=== PATIENT | female | born 1960 | race Caucasian/White ===

== ENCOUNTER 2018-01-22 08:25 | Inpatient (IN) | payer MEDICAID ==
[~2018-01-22] VITALS: Ht 154.9 cm; Wt 80.0 kg
[2018-01-22 09:14] LABS: Basophils # (auto) 0 uL; Basophils % (auto) 0.3 % (0.0-2.0); Eosinophils # (auto) 0 uL; Hematocrit 45.5 % (36.0-46.0); Hemoglobin 15.4 g/dL (12.2-16.2); Lymphocytes % (auto) 7.6 % (10.0-50.0); Mean Corpuscular Hgb Conc. 33.9 g/dL (32.0-36.0); Mean Corpuscular Volume 91.4 fL (80.0-100.0); Monocytes # (auto) 0.7 uL; Monocytes % (auto) 5.1 % (0.0-12.0); Neutrophils # (auto) 11.6 uL; Platelet Count (auto) 298 10^3/uL (140-450); Red Blood Cells 4.98 10^6/uL (4.0-5.20); Red Cell Distribution Width 13.5 % (11.8-14.3); White Blood Cell 13.3 10^3/uL (4.4-10.8)
[2018-01-22] MEDS ORDERED: SODIUM CHLORIDE 0.9% 1,000 ML IV ONE (09:20)
[2018-01-22 09:21] LABS: BUN/Creatinine Ratio 12.6; Calcium 8.9 mg/dL (8.5-10.1); Potassium 4.1 mmol/L (3.5-5.1)
[2018-01-22 09:24] LABS: Amylase 37 U/L (25-115); Bilirubin, Total 0.6 mg/dL (0.2-1.0); Lipase 188 U/L (73-393); Total Protein 7.8 g/dL (6.4-8.2)
[2018-01-22] MEDS ORDERED: LABETALOL HCL 5 MG/ML ML 20ML VIAL IV ONE (09:30)
[2018-01-22] MEDS ORDERED: ONDANSETRON HCL 4 MG/2 ML VIAL IV ONE (09:30)
[2018-01-22] MEDS ORDERED: MORPHINE SULFATE 4 MG/ML SYR/VIAL IV ONE (09:30)
[2018-01-22 09:43] LABS: Urine Bacteria NONE SEEN /hpf (None Seen); Urine Blood Negative /uL (Negative); Urine Mucus FEW (None Seen); Urine Specific Gravity 1.018 (1.001-1.035); Urine WBC 2 /hpf (0 - 5)
[2018-01-22] MEDS ORDERED: cloNIDine HCL 0.1 MG TAB PO ONE (10:45)
[2018-01-22] MEDS ORDERED: cefTRIAXone 1GM/10ml IVPUSH 10 ML IV ONE (12:00)
[2018-01-22] MEDS ORDERED: DEXTROSE (50%) 50ML SYRG IV PRN (12:45)
[2018-01-22] MEDS ORDERED: cloNIDine HCL 0.1 MG TAB PO PRN (13:00)
[2018-01-22] MEDS ORDERED: ACETAMINOPHEN 325 MG TAB PO PRN (13:00)
[2018-01-22] MEDS ORDERED: HYDROcodone-ACET 5/325MG TAB PO PRN (13:00)
[2018-01-22] MEDS ORDERED: LABETALOL HCL 5 MG/ML ML 20ML VIAL IV PRN (13:00)
[2018-01-22] MEDS: SODIUM CHLORIDE 0.9% 1,000 ML IV SCH ×2 (13:30→21:51)
[2018-01-22] MEDS: metroNIDAZOLE 500MG/100ML 100 ML IV SCH ×2 (14:00→21:51)
[2018-01-22] MEDS ORDERED: [UNRECOGNIZED DRUG - CODE] PO (14:21)
[2018-01-22] MEDS: ACCU-CHEK COMFORT CURVE STRIP VI SCH ×2 (16:39→21:51)
[2018-01-22] MEDS: InsuLIN REG 1unit/0.01ml Soln (100units/ml) SC SCH ×2 (16:39→21:51)
[2018-01-22 17:07] VITALS: BP 117/75
[2018-01-22] MEDS: MORPHINE SULFATE 4 MG/ML SYR/VIAL IV PRN (18:07)
[2018-01-22] MEDS: ONDANSETRON HCL 4 MG/2 ML VIAL IV PRN (18:07)
[2018-01-22] MEDS: ALBUTEROL SULF 2.5 MG/0.5ML(0.5%) NEB SOLN NEB SCH (18:11)
[2018-01-22 20:07] VITALS: BP 117/75
[2018-01-22] MEDS: FAMOTIDINE 20 MG TAB PO SCH (21:51)
[2018-01-22] MEDS: ASCORBIC ACID 500 MG TAB PO SCH (21:51)
[2018-01-22 22:00] VITALS: BP 126/76
[2018-01-23 05:00] VITALS: BP 105/69
[2018-01-23] MEDS: SODIUM CHLORIDE 0.9% 1,000 ML IV SCH ×3 (05:27→17:09)
[2018-01-23 06:15] LABS: Basophils # (auto) 0 uL; Basophils % (auto) 0.3 % (0.0-2.0); Eosinophils # (auto) 0.1 uL; Hematocrit 39.1 % (36.0-46.0); Hemoglobin 13.1 g/dL (12.2-16.2); Lymphocytes # (auto) 1.7 uL; Lymphocytes % (auto) 19.8 % (10.0-50.0); Mean Corpuscular Hemoglobin 31.1 pg (28.0-32.0); Mean Corpuscular Hgb Conc. 33.6 g/dL (32.0-36.0); Mean Corpuscular Volume 92.6 fL (80.0-100.0); Monocytes # (auto) 0.7 uL; Monocytes % (auto) 8.5 % (0.0-12.0); Neutrophils % (auto) 70.4 % (37.0-80.0); Nucleated Red Blood Cells % 0.1 %; Platelet Count (auto) 226 10^3/uL (140-450); Red Blood Cells 4.22 10^6/uL (4.0-5.20); Red Cell Distribution Width 13.5 % (11.8-14.3); White Blood Cell 8.6 10^3/uL (4.4-10.8)
[2018-01-23] MEDS: metroNIDAZOLE 500MG/100ML 100 ML IV SCH ×3 (06:15→21:39)
[2018-01-23] MEDS: InsuLIN REG 1unit/0.01ml Soln (100units/ml) SC SCH ×4 (06:15→21:44)
[2018-01-23] MEDS: ACCU-CHEK COMFORT CURVE STRIP VI SCH ×4 (06:15→21:44)
[2018-01-23] MEDS: MORPHINE SULFATE 4 MG/ML SYR/VIAL IV PRN ×3 (06:16→20:18)
[2018-01-23] MEDS: ONDANSETRON HCL 4 MG/2 ML VIAL IV PRN ×3 (06:16→20:18)
[2018-01-23 06:37] LABS: Potassium 3.9 mmol/L (3.5-5.1)
[2018-01-23 06:52] LABS: Albumin 2.9 g/dL (3.4-5.0); BUN/Creatinine Ratio 15.5; Bilirubin, Total 0.8 mg/dL (0.2-1.0); Calcium 7.6 mg/dL (8.5-10.1); Total Protein 5.9 g/dL (6.4-8.2)
[2018-01-23] MEDS: ALBUTEROL SULF 2.5 MG/0.5ML(0.5%) NEB SOLN NEB SCH ×4 (06:55→19:31)
[2018-01-23 08:00] VITALS: BP 100/61
[2018-01-23 09:38] VITALS: BP 100/61
[2018-01-23] MEDS: FAMOTIDINE 20 MG TAB PO SCH ×2 (09:46→21:40)
[2018-01-23] MEDS: ZINC SULFATE 220mg CAP or TAB PO SCH (09:46)
[2018-01-23] MEDS: MULTIPLE VITAMIN TAB PO SCH (09:46)
[2018-01-23] MEDS: CYANOCOBALAMIN 500 MCG TAB PO SCH (09:46)
[2018-01-23] MEDS: ASCORBIC ACID 500 MG TAB PO SCH ×2 (09:46→21:41)
[2018-01-23] MEDS: cefTRIAXone 1GM/10ml IVPUSH 10 ML IV SCH (09:47)
[2018-01-23 09:59] LABS: INR 0.98 (0.9-1.15); Partial Thromboplastin Time 27.3 sec (23.78-33.04); Prothrombin Time 10.5 sec (9.27-12.13)
[2018-01-23 13:00] VITALS: BP 109/72
[2018-01-23 16:19] VITALS: BP 113/82
[2018-01-23 21:48] VITALS: BP 112/73
[2018-01-24] MEDS: ONDANSETRON HCL 4 MG/2 ML VIAL IV PRN ×3 (00:31→09:48)
[2018-01-24] MEDS: MORPHINE SULFATE 4 MG/ML SYR/VIAL IV PRN ×4 (00:31→21:38)
[2018-01-24] MEDS: SODIUM CHLORIDE 0.9% 1,000 ML IV SCH ×2 (03:27→12:49)
[2018-01-24 04:47] VITALS: BP 106/70
[2018-01-24] MEDS ORDERED: SODIUM CHLORIDE 0.9 % NEB SOLN 3ML NEB ONE (05:36)
[2018-01-24] MEDS: metroNIDAZOLE 500MG/100ML 100 ML IV SCH ×3 (06:00→21:40)
[2018-01-24] MEDS: ALBUTEROL SULF 2.5 MG/0.5ML(0.5%) NEB SOLN NEB SCH ×3 (06:00→18:00)
[2018-01-24] MEDS: ACCU-CHEK COMFORT CURVE STRIP VI SCH ×2 (06:18→11:35)
[2018-01-24] MEDS: InsuLIN REG 1unit/0.01ml Soln (100units/ml) SC SCH ×2 (06:18→11:30)
[2018-01-24 06:26] LABS: Basophils # (auto) 0 uL; Basophils % (auto) 0.5 % (0.0-2.0); Eosinophils # (auto) 0.2 uL; Eosinophils % (auto) 2.7 % (0.0-7.0); Lymphocytes # (auto) 1.6 uL; Lymphocytes % (auto) 20.5 % (10.0-50.0); Mean Corpuscular Hemoglobin 31.8 pg (28.0-32.0); Mean Corpuscular Hgb Conc. 34.3 g/dL (32.0-36.0); Mean Corpuscular Volume 92.7 fL (80.0-100.0); Monocytes # (auto) 0.7 uL; Monocytes % (auto) 8.7 % (0.0-12.0); Neutrophils # (auto) 5.4 uL; Neutrophils % (auto) 67.6 % (37.0-80.0); Nucleated Red Blood Cells % 0.1 %; Platelet Count (auto) 223 10^3/uL (140-450); Red Cell Distribution Width 13.7 % (11.8-14.3)
[2018-01-24 06:57] LABS: Potassium 3.9 mmol/L (3.5-5.1)
[2018-01-24 07:02] LABS: BUN/Creatinine Ratio 9.4; Calcium 7.7 mg/dL (8.5-10.1); Magnesium 1.8 mg/dL (1.6-2.6)
[2018-01-24 09:00] VITALS: BP 115/71
[2018-01-24] MEDS: cefTRIAXone 1GM/10ml IVPUSH 10 ML IV SCH (09:50)
[2018-01-24] MEDS: ZINC SULFATE 220mg CAP or TAB PO SCH (10:00)
[2018-01-24] MEDS: ASCORBIC ACID 500 MG TAB PO SCH ×2 (10:00→21:40)
[2018-01-24] MEDS: CYANOCOBALAMIN 500 MCG TAB PO SCH (10:00)
[2018-01-24] MEDS: MULTIPLE VITAMIN TAB PO SCH (10:00)
[2018-01-24] MEDS: FAMOTIDINE 20 MG TAB PO SCH ×2 (10:00→21:40)
[2018-01-24 13:00] VITALS: BP 123/72
[2018-01-24] MEDS ORDERED: ceFAZolin 1GM/50ML 50 ML IV ONE (15:27)
[2018-01-24] MEDS ORDERED: POVIDONE IODINE 10 % TOPICAL OINT 30GM TOP ONE (16:15)
[2018-01-24] MEDS ORDERED: GLYCOPYRROLATE 0.2 MG/ML 1ML VIAL IV ONE (16:24)
[2018-01-24] MEDS ORDERED: NEOSTIGMINE 1 MG/ML INJ (10mg/10ML VIAL) IV ONE (16:24)
[2018-01-24] MEDS ORDERED: SUCCINYLCHOLINE CHLORIDE 20 MG/ML 10ML VIAL IV ONE (16:25)
[2018-01-24] MEDS ORDERED: MEPERIDINE HCL (50 MG/ML) 1 ML VIAL ONE (16:30)
[2018-01-24] MEDS ORDERED: fentaNYL CITRATE 100 MCG/2 ML VL ONE (16:30)
[2018-01-24] MEDS ORDERED: MIDAZOLAM HCL 1MG/1ML-2 ML VIAL ONE (16:30)
[2018-01-24] MEDS ORDERED: DEXAMETHASONE SOD PHOS 10MG/1ML VIAL INJ ONE (16:52)
[2018-01-24] MEDS ORDERED: PROPOFOL 10 MG/ML 20 ML IV ONE (16:54)
[2018-01-24] MEDS ORDERED: ROCURONIUM 10MG/ML 10ML VIAL IV ONE (17:07)
[2018-01-24] MEDS ORDERED: MORPHINE SULFATE 4 MG/ML SYR/VIAL IV PRN (17:15)
[2018-01-24] MEDS: ONDANSETRON HCL 4 MG/2 ML VIAL IV ONE ×2 (17:15→17:50)
[2018-01-24] MEDS ORDERED: ePHEDrine SULFATE 50 MG/ML AMP IV PRN (17:15)
[2018-01-24] MEDS: KETOROLAC TROMETH 30 MG/ML 1ML VIAL IV ONE ×2 (17:15→17:50)
[2018-01-24] MEDS ORDERED: MIDAZOLAM HCL 1MG/1ML-2 ML VIAL IV PRN (17:15)
[2018-01-24] MEDS ORDERED: LABETALOL HCL 5 MG/ML 4ML SYRINGE IV PRN (17:15)
[2018-01-24] MEDS: HYDROmorphone HCL 2 MG/ML VL IV PRN ×2 (17:50→18:00)
[2018-01-24] MEDS ORDERED: MORPHINE SULFATE 4 MG/ML SYR/VIAL IV ONE (18:00)
[2018-01-24 22:00] VITALS: BP 104/77
[2018-01-25] MEDS: TEMAZEPAM 15 MG CAP PO PRN ×2 (01:29→22:29)
[2018-01-25] MEDS: SODIUM CHLORIDE 0.9% 1,000 ML IV SCH ×2 (01:29→08:30)
[2018-01-25] MEDS: MORPHINE SULFATE 4 MG/ML SYR/VIAL IV PRN ×2 (03:17→08:29)
[2018-01-25 05:00] VITALS: BP 121/78
[2018-01-25] MEDS: ALBUTEROL SULF 2.5 MG/0.5ML(0.5%) NEB SOLN NEB SCH ×4 (06:00→18:35)
[2018-01-25] MEDS: metroNIDAZOLE 500MG/100ML 100 ML IV SCH ×3 (06:02→22:31)
[2018-01-25 07:04] LABS: Basophils # (auto) 0 uL; Basophils % (auto) 0.2 % (0.0-2.0); Eosinophils # (auto) 0 uL; Hematocrit 38.2 % (36.0-46.0); Hemoglobin 13.3 g/dL (12.2-16.2); Lymphocytes # (auto) 0.5 uL; Lymphocytes % (auto) 5.4 % (10.0-50.0); Mean Corpuscular Hemoglobin 32.4 pg (28.0-32.0); Mean Corpuscular Hgb Conc. 34.9 g/dL (32.0-36.0); Mean Corpuscular Volume 92.9 fL (80.0-100.0); Monocytes # (auto) 0.2 uL; Monocytes % (auto) 2.8 % (0.0-12.0); Neutrophils # (auto) 8.2 uL; Neutrophils % (auto) 91.6 % (37.0-80.0); Platelet Count (auto) 244 10^3/uL (140-450); Red Blood Cells 4.11 10^6/uL (4.0-5.20); Red Cell Distribution Width 13.1 % (11.8-14.3)
[2018-01-25 07:20] LABS: Albumin 2.7 g/dL (3.4-5.0); BUN/Creatinine Ratio 21.1; Magnesium 1.9 mg/dL (1.6-2.6); Potassium 4.8 mmol/L (3.5-5.1)
[2018-01-25 07:23] LABS: Bilirubin, Total 0.2 mg/dL (0.2-1.0); Total Protein 6.2 g/dL (6.4-8.2)
[2018-01-25] MEDS: ONDANSETRON HCL 4 MG/2 ML VIAL IV PRN ×2 (08:30→14:23)
[2018-01-25 09:00] VITALS: BP 119/92
[2018-01-25] MEDS: ASCORBIC ACID 500 MG TAB PO SCH ×2 (10:00→22:29)
[2018-01-25] MEDS: ZINC SULFATE 220mg CAP or TAB PO SCH (10:03)
[2018-01-25] MEDS: MULTIPLE VITAMIN TAB PO SCH (10:03)
[2018-01-25] MEDS: CYANOCOBALAMIN 500 MCG TAB PO SCH (10:03)
[2018-01-25] MEDS: FAMOTIDINE 20 MG TAB PO SCH ×2 (10:03→22:29)
[2018-01-25] MEDS: cefTRIAXone 1GM/10ml IVPUSH 10 ML IV SCH (10:08)
[2018-01-25 12:00] VITALS: BP 130/90
[2018-01-25] MEDS ORDERED: LEVO500T21 PO (12:43)
[2018-01-25] MEDS ORDERED: METR500T PO (12:43)
[2018-01-25] MEDS: DOCUSATE SOD 100 MG CAP PO PRN ×2 (14:21→22:29)
[2018-01-25] MEDS: HYDROcodone-ACET 5/325MG TAB PO PRN ×2 (14:22→20:04)
[2018-01-25 17:00] VITALS: BP 128/81
[2018-01-25 21:55] VITALS: BP 111/69
[2018-01-25 23:10] VITALS: BP 111/69
[2018-01-26] MEDS: ALBUTEROL SULF 2.5 MG/0.5ML(0.5%) NEB SOLN NEB SCH ×2 (00:02→06:00)
[2018-01-26] MEDS: HYDROcodone-ACET 5/325MG TAB PO PRN ×2 (00:25→06:25)
[2018-01-26 04:46] VITALS: BP 141/90
[2018-01-26] MEDS: metroNIDAZOLE 500MG/100ML 100 ML IV SCH (06:24)
[2018-01-26 09:00] VITALS: BP 138/87
[2018-01-26] MEDS: ZINC SULFATE 220mg CAP or TAB PO SCH (09:32)
[2018-01-26] MEDS: cefTRIAXone 1GM/10ml IVPUSH 10 ML IV SCH (09:32)
[2018-01-26] MEDS: FAMOTIDINE 20 MG TAB PO SCH (09:33)
[2018-01-26] MEDS: ASCORBIC ACID 500 MG TAB PO SCH (09:33)
[2018-01-26] MEDS: MULTIPLE VITAMIN TAB PO SCH (09:33)
[2018-01-26] MEDS: CYANOCOBALAMIN 500 MCG TAB PO SCH (09:35)
== END 2018-01-26 13:17 | disposition home or self-care (01) | DRG 710 ==
LOC: ER 08:25 → EDBD 08:25 → OVERFLOW 08:26 → WEST WING 15:00
PROVIDERS: ADMIT Internal Medicine; ATTEND Internal Medicine
PROC: 0FT44ZZ Resection of Gallbladder, Percutaneous Endoscopic Approach (ICD-10-PCS; principal; 2018-01-24 16:24)
DX: A41.9 Sepsis, unspecified organism (principal); K81.0 Acute cholecystitis; E66.9 Obesity, unspecified; F41.9 Anxiety disorder, unspecified; J45.909 Unspecified asthma, uncomplicated; I12.9 Hypertensive chronic kidney disease with stage 1 through stage 4 chronic kidney disease, or unspecified chronic kidney disease; R73.9 Hyperglycemia, unspecified; N20.0 Calculus of kidney; N18.2 Chronic kidney disease, stage 2 (mild); E66.01 Morbid (severe) obesity due to excess calories; F17.210 Nicotine dependence, cigarettes, uncomplicated; F32.9 Major depressive disorder, single episode, unspecified; Z88.2 Allergy status to sulfonamides; Z68.33 Body mass index [BMI] 33.0-33.9, adult; Z71.6 Tobacco abuse counseling
CPT/HCPCS: 36415; 71045; 74176; 76705; 78226; 80048; 80053; 80061; 81001; 82150; 82247; 82962; 83036; 83690; 83735; 84443; 85025; 85610; 85730; 86850; 86900; 86901; 87040; 93005; 94640; 96361; 96374; 96375; A6257; J0330; J0690; J0696; J1100; J1885; J2250; J2405; J2704; J3490

== ENCOUNTER 2018-12-17 18:12 | Emergency (ER) | payer MEDICAID ==
[~2018-12-17] VITALS: Ht 152.4 cm; Wt 70.8 kg
[~2018-12-17 18:12] MED LIST: LEVO500T21 PO; METR500T PO; [UNRECOGNIZED DRUG - CODE] PO
[2018-12-17 19:03] LABS: Urine Bacteria MOD /hpf (None Seen); Urine Blood Negative /uL (Negative); Urine Mucus FEW (None Seen); Urine Specific Gravity 1.014 (1.001-1.035); Urine WBC 60 /hpf (0 - 5)
[2018-12-17 19:11] LABS: Basophils # (auto) 0.1 uL; Eosinophils # (auto) 0 uL; Eosinophils % (auto) 0.2 % (0.0-7.0); Hematocrit 42.6 % (36.0-46.0); Hemoglobin 14.4 g/dL (12.2-16.2); Lymphocytes # (auto) 1.6 uL; Lymphocytes % (auto) 12.8 % (10.0-50.0); Mean Corpuscular Hemoglobin 31.6 pg (28.0-32.0); Mean Corpuscular Hgb Conc. 33.9 g/dL (32.0-36.0); Mean Corpuscular Volume 93.1 fL (80.0-100.0); Monocytes # (auto) 1.1 uL; Monocytes % (auto) 9.1 % (0.0-12.0); Neutrophils # (auto) 9.3 uL; Neutrophils % (auto) 76.9 % (37.0-80.0); Platelet Count (auto) 228 10^3/uL (140-450); Red Blood Cells 4.57 10^6/uL (4.0-5.20); White Blood Cell 12.1 10^3/uL (4.4-10.8)
[2018-12-17 19:34] LABS: Albumin 3.5 g/dL (3.4-5.0); BUN/Creatinine Ratio 9.2; Calcium 8.4 mg/dL (8.5-10.1); Potassium 3.2 mmol/L (3.5-5.1)
[2018-12-17 19:37] LABS: Bilirubin, Total 0.5 mg/dL (0.2-1.0); Total Protein 7.2 g/dL (6.4-8.2)
[2018-12-17] MEDS ORDERED: ONDANSETRON HCL 4 MG/2 ML VIAL IV ONE (20:00)
[2018-12-17] MEDS ORDERED: MORPHINE SULFATE 4 MG/ML SYR/VIAL IV ONE (20:00)
[2018-12-17] MEDS ORDERED: cefTRIAXone 1GM/50ML D5W 50 ML IV ONE (21:15)
[2018-12-17] MEDS ORDERED: SODIUM CHLORIDE 0.9% 1,000 ML IV ONE (21:15)
[2018-12-17 22:10] VITALS: BP 110/55
== END 2018-12-17 23:28 | disposition home or self-care (01) ==
LOC: ER 18:18
DX: N20.0 Calculus of kidney (principal); N39.0 Urinary tract infection, site not specified; F17.210 Nicotine dependence, cigarettes, uncomplicated; F12.10 Cannabis abuse, uncomplicated; I10 Essential (primary) hypertension; Z90.49 Acquired absence of other specified parts of digestive tract; Z88.2 Allergy status to sulfonamides; Z79.899 Other long term (current) drug therapy
CPT/HCPCS: 36415; 74176; 80053; 81001; 85025; 96365; 96375; 99284; J0696; J2270; J2405